=== PATIENT | male | born 1960 | race African-American/Black ===

== ENCOUNTER → 2020-02-16 | Outpatient (CLI) | payer OTHER ==
[~2020-02-16] MED LIST: ASPI-630 PO; IOHEXOL 180 MG/ML 10 ML VIAL. ONE; LIPITOR80 MG PO; METO100T5 PO; TAMS0.4C97 PO; TELM1TAB26 PO; methylPREDNISolone ACETATE 40 MG/ML VIAL. ONE; methylPREDNISolone ACETATE 80 MG/ML VIAL. ONE
--- NOTE | 2020-02-16 09:49 | PDOC1 ---
INITIAL PAIN CONSULT DATE OF SERVICE: DOS: DATE: 02/16/20 TIME: 09:43 CHIEF COMPLAINT: Chief Complaint: Low back and left lower extremity pain Neck and left upper extremity pain HISTORY OF PRESENT ILLNESS: 59-year-old male presents with history of pain low back bilateral lower extr emities left greater than right also neck and left upper extremity pain for many years patient reports [employer] duty [employer] as well as sports related injuries over the many years and [employer] active duty with many years of pain worse over the past 6 months to year wart is beginning to get much worse especially in the low back and left leg when he standing patient reports with walking it decreases slightly but is still present standing still is the worst. Patient ports better with sitting or laying down but does awaken her from sleep about twice a night patient reports is not effective bowel bladder control does not affect his abil ity to ambulate significantly less he goes more than about 15 to 20 minutes he does have a cane which he carries with him occasionally but does not have that with him today. Patient reports the pain is constant throbbing shooting in the low back rating to left lower extremity posterior gluteus lateral thigh anterior thigh medial thigh also some on the right with some tingling in the right lateral and anterior thigh patient ports his numbness radiating is also aching cramping pain in the back as well as in the neck patient describes his disability rating is from 0-10 10 being the worst is a 9 with family home responsibilities 6 with social activity recreation and occupational activities 8 with sexual behavior for self-care and/support activities. Patient have MRI scan lumbar spine showing some degenerative changes at the L4-5 and L5-S1 levels. Patient ports no loss of motor function but significant fatigability of the lower extremities specially on the left side with walking and especially with standing. PAST MEDICAL HISTORY: PMH: Hypertension, arthritis, migraine headaches, sleep apnea PREVIOUS SURGERIES: Past Surgical Hx: Right shoulder bone spur 1998, left shoulder bone spur 2014, right knee meniscus repair 2005, bilateral knee tendon repair 2007 CURRENT MEDICATIONS: Current Meds: See patients chart ALLERGIES; Allergies: Coded Allergies: No Known Drug Allergies (Unverified , 02/16/20) FAMILY HISTORY: Family Hx: Heart disease and hypertension SOCIAL HISTORY: Social Hx: She drinks alcohol about 2 drinks daily does not smoke not use any illegal illicit recreational drugs is lives with his spouse with 2 children live at home lives locally in [facility] REVIEW OF SYSTEMS: ROS: Positive for those items mentioned in history of present illness, all systems are reviewed, otherwise negative, and is complete and full and well-documented on patient's chart PHYSICAL EXAM: VS: Blood pressure is 133/78 pulse 77 respirations 18 temperature 90.2 F height is 6 foot 5 inches weight is 340 pounds PE: PHYSICAL EXAMINATION: GENERAL: The patient is awake, alert, oriented, appropriate, very pleasant demeanor HEENT: Shows normocephalic, atraumatic. Extraocular movements are intact and symmetrical. Oral cavity: Mucous membranes moist and pink. Dentition is intact. NECK: Shows anterior throat supple without palpable lymphadenopathy noted. Swallow reflex symmetrical. CHEST: Shows normal on inspection. Breath sounds are clear bilaterally, no rales rhonchi wheezes auscultated. HEART: Shows S1, S2 clear. No murmurs auscultated. ABDOMEN: Soft, nontender, nondistended, obese. No palpable organomegaly is noted. No rebound or guarding demonstrated. BACK: Shows spine grossly in the midline. Normal-appearing cervical lordotic curvature. Cervical spine shows good rotation motion both laterally as well as extension flexion with some minor pain in the left shoulder with left lateral rotation past 45 degrees. There is slightly increased thoracic kyphosis, some minor flattening of the lumbar lordotic curvature. Lumbar paraspinous muscles show symmetrical on inspection, on palpation shows some moderate tenderness diffusely throughout the upper, middle and lower distribution of the paraspinous muscles, but without specific trigger points, without radiation of pain. The patient has good rotational motion of the lumbar spine, both laterally as well as extension and flexion without significant difficulty. No tenderness over the spinous processes, sacrum or sacroiliac regions. EXTREMITIES: Lower extremities show deep tendon reflexes 2+ in the patellar and tendo calcaneus tendons. Motor exam is 5 on a scale of 5 with right dorsiflexion, extension, quadriceps and hamstring flexion and 5/5 on the left. Peripheral pulses are 1+ posterior tibial. No peripheral edema is noted bilaterally. Lower extremities are warm and dry to touch, equal in color and appearance. Straight leg raise noted to be negative bilaterally. Gaenslen's and Serjio's maneuvers are negative bilaterally as well. Upper extremities show deep tendon reflexes 2+ in the bicep and tricep tendons, motor exam is strong with 5 out of 5 labor/excavator strength biceps and triceps flexion and extension shoulder shrug strong and intact without loss of strength on resistance bilaterally. The patient is able to stand, stand on his toes out significant difficulty or loss of balance walks with a normal-appearing gait for short distance in the office today not use any assistive devices currently. SKIN: Shows warm and dry, good turgor. No edema. No sores, rashes or bruising throughout. IMPRESSION: Impression: 59-year-old male with long history low back bilateral lower extremity pain left greater than right in a radicular fashion MRI scan is noted Hypertension Arthritis Plan: Options were discussed with the patient including conservative medical management physical therapies interventional techniques and he like to pursue interventional techniques. We discussed a lumbar epidural steroid injection using descriptions as well as anatomical models to describe the procedure. Risks were discussed including but not limited to: Bleeding, infection, possibility of epidural hematoma and subsequent neurological compromise, dural puncture, headaches, spinal cord and/or nerve damage, side effects of steroid medication, and poor results regarding pain control. Patient understands wished to proceed. Patient will return to the clinic in approximate 2 weeks for follow-up was counseled as to return appointment activity level and side effects to be aware of Procedure is lumbar epidural steroid injection under local anesthetic using sterile prep and drape at the L4-5 level using C-arm fluoroscopic guidance in both AP and lateral views medications injected is 120 mg Depo-Medrol + 10 mL preservative-free normal saline and 2 mL contrast- condition at discharge is stable patient tolerated procedure well had no complications. RAQUEL MARSHALL MD Feb 16, 2020 09:49
== END | disposition home or self-care (01) ==
LOC: PNCL 08:11
PROVIDERS: ATTEND Anesthesiology
DX: M54.5 Low back pain (principal); M79.605 Pain in left leg; M79.602 Pain in left arm; I10 Essential (primary) hypertension; M19.90 Unspecified osteoarthritis, unspecified site; G43.909 Migraine, unspecified, not intractable, without status migrainosus; G47.30 Sleep apnea, unspecified; Z79.82 Long term (current) use of aspirin; Z79.899 Other long term (current) drug therapy; Z98.890 Other specified postprocedural states
CPT/HCPCS: 62323; J1030; J1040; Q9965

== ENCOUNTER → 2020-03-01 | Outpatient (CLI) | payer OTHER ==
--- NOTE | 2020-03-01 08:42 | PDOC ---
Progress Note - Pain Clinic Date of Service: DOS: DATE: 03/01/20 TIME: 08:39 Diagnosis: Dx: Lumbar radiculopathy with lumbar degenerative disc disease Cervical radiculopathy with cervical degenerative disc disease History or Present Illness: HPI: 59-year-old male returns follow-up status post lumbar epidural steroid injection x1. Patient reports about 50% improvement initially now about 10% overall with pain returning in the low back bilaterally and also into the bilateral lower extremity slightly more on the left than the right but present bilaterally to the posterior gluteus posterior lateral thigh anterior thighs medial thighs patient reports is worse with walking standing changing positions better with sitting or laying down but is been waking from sleep here over the last week or so about every 5 hours. Patient reports his pain is a 9 on scale of 10 over the past week 5 on average to its least is a 5 today. Patient reports no new motor or sensory deficits no new bowel or bladder incontinence or complaints patient scribes pain is aching tight shooting also tingling in the low back and tingling and shooting in the legs again slightly more on the left and present bilaterally. Physical Exam: VS: Blood pressure is 122/72 pulse 83 respirations 20 temperature 90.2 F height is 6 foot 5 inches weight is 339 pounds PE: PHYSICAL EXAMINATION: GENERAL: The patient is awake, alert, oriented, appropriate, very pleasant demeanor HEENT: Shows normocephalic, atraumatic. Extraocular movements are intact and symmetrical. Oral cavity: Mucous membranes moist and pink. NECK: Shows anterior throat supple without palpable lymphadenopathy noted. Swallow reflex symmetrical. CHEST: Shows normal on inspection. Breath sounds are clear bilaterally. HEART: Shows S1, S2 clear. No murmurs auscultated. ABDOMEN: Soft, nontender, nondistended, obese. No palpable organomegaly is noted. No rebound or guarding demonstrated. BACK: Shows spine grossly in the midline. Normal-appearing cervical lordotic curvature. There is slightly increased thoracic kyphosis, some minor flattening of the lumbar lordotic curvature. Lumbar paraspinous muscles show symmetrical on inspection, on palpation shows some moderate tenderness diffusely throughout the upper, middle and lower distribution of the paraspinous muscles, but without specific trigger points, without radiation of pain. The patient has good rotational motion of the lumbar spine, both laterally as well as extension and flexion without significant difficulty. No tenderness over the spinous processes, sacrum or sacroiliac regions. EXTREMITIES: Lower extremities show deep tendon reflexes 2+ in the patellar and tendo calcaneus tendons. Motor exam is 5 on a scale of 5 with right dorsiflexion, extension, quadriceps and hamstring flexion and 5/5 on the left. Peripheral pulses are 1+ posterior tibial. No peripheral edema is noted bilaterally. Lower extremities are warm and dry to touch, equal in color and appearance. SKIN: Shows warm and dry, good turgor. No edema. No sores, rashes or bruising throughout. Procedure: Procedure: Options were discussed with the patient. Patient's old chart was reviewed his current medication regimen updated current review of systems updated today as well. We will proceed with a second in a series lumbar epidural steroid injection today with fluoroscopic guidance. Risks were discussed including but not limited to: Bleeding, infection, possibility of epidural hematoma and subsequent neurological compromise, dural puncture, headaches, spinal cord and/or nerve damage, side effects of steroid medication, and poor results regarding pain control. Patient understands wished to proceed. Patient will return to the clinic in approximate 2 weeks for follow-up was counseled as to return appointment activity level and side effects to be aware of. Medication Injected: Med Injected: Procedure is lumbar epidural steroid injection under local anesthetic using sterile prep and drape at the L4-5 level using C-arm fluoroscopic guidance in both AP and lateral views medications injected is 120 mg Depo-Medrol + 10 mL preservative-free normal saline and 2 mL contrast- condition at discharge is stable patient tolerated procedure well had no complications. Condition at Discharge: Condition at Discharge: Condition at discharge is stable, patient tolerated procedure well and had no complications. RAQUEL MARSHALL MD Mar 01, 2020 08:42
== END | disposition home or self-care (01) ==
LOC: PNCL 08:09
PROVIDERS: ATTEND Anesthesiology
DX: M51.16 Intervertebral disc disorders with radiculopathy, lumbar region (principal); M50.10 Cervical disc disorder with radiculopathy, unspecified cervical region; Z79.82 Long term (current) use of aspirin; Z79.899 Other long term (current) drug therapy
CPT/HCPCS: 62323; J1030; J1040; Q9965

== ENCOUNTER → 2020-03-15 | Outpatient (CLI) | payer OTHER ==
--- NOTE | 2020-03-15 08:32 | PDOC ---
Progress Note - Pain Clinic Date of Service: DOS: DATE: 03/15/20 TIME: 08:29 Diagnosis: Dx: Lumbar radiculopathy with lumbar degenerative disc disease Cervical radiculopathy with cervical degenerative disc disease History or Present Illness: HPI: 60-year-old male returns follow-up status post lumbar epidural to injection x2. Patient reports only about 20% improvement overall in the low back bilateral lower extremities patient chuy still some pain low back bilateral posterior gluteus lateral thighs anterior thighs medial thighs worse with walking standing changing positions. Patient chuy has been relocating to a new home has been moving a lot of objects around the house without extra activity and bending and moving and standing etc. which she feels has exacerbated the pain to some extent since his last visit. Patient reports pain now is a 9 on scale 10 is worse over the past week 7 on average for its least and is a 7 today patient reports is aching and tingling sometimes unbearable constant in the low back and the legs. Patient reports no new motor or sensory deficits reports does awaken him from sleep about once every 5 hours but usually repositioning get back to sleep. Patient reports no bowel or bladder incontinence or other complaints. Physical Exam: VS: Blood pressure is 138/78 pulse 81 respirations 18 temperature is 6 feet 5 inches weight is 337 pounds PE: PHYSICAL EXAMINATION: GENERAL: The patient is awake, alert, oriented, appropriate, very pleasant demeanor HEENT: Shows normocephalic, atraumatic. Extraocular movements are intact and symmetrical. NECK: Shows anterior throat supple without palpable lymphadenopathy noted. Swallow reflex symmetrical. CHEST: Shows normal on inspection. Breath sounds are clear bilaterally, no rales or rhonchi. HEART: Shows S1, S2 clear. ABDOMEN: Soft, nontender, nondistended, obese. No palpable organomegaly is noted. No rebound or guarding demonstrated. BACK: Shows spine grossly in the midline. Normal-appearing cervical lordotic curvature. There is slightly increased thoracic kyphosis, some flattening of the lumbar lordotic curvature. Lumbar paraspinous muscles show symmetrical on inspection, on palpation shows some moderate tenderness diffusely throughout the middle and lower distribution of the paraspinous muscles without specific trigger points, without radiation of pain. The patient has good rotational motion of the lumbar spine, both laterally as well as extension and flexion without significant difficulty. No tenderness over the spinous processes, sacrum or sacroiliac regions. EXTREMITIES: Lower extremities show deep tendon reflexes 2 in the patellar and tendo calcaneus tendons. Motor exam is 5 on a scale of 5 with right dorsiflexion, extension, quadriceps and hamstring flexion and 5/5 on the left. Peripheral pulses are 1 posterior tibial. No peripheral edema is noted bilaterally. Lower extremities are warm and dry to touch, equal in color and appearance. SKIN: Shows warm and dry, good turgor. No edema. No sores, rashes or bruising throughout. Procedure: Procedure: Options were discussed with the patient. Patient chart was reviewed his his current medication regimen updated current review of systems updated today as well. We will proceed with a third in the series lumbar epidural steroid injection today with fluoroscopic guidance. Risks were discussed including but not limited to: Bleeding, infection, possibility of epidural hematoma and subsequent neurological compromise, dural puncture, headaches, spinal cord and/or nerve damage, side effects of steroid medication, and poor results regarding pain control. Patient understands wished to proceed. Patient will return to the clinic in approximate 2 weeks for follow-up was counseled as to return appointment activity level and side effects to be aware of. Medication Injected: Med Injected: Procedure is lumbar epidural steroid injection under local anesthetic using sterile prep and drape at the L4-5 level using C-arm fluoroscopic guidance in both AP and lateral views medications injected is 120 mg Depo-Medrol + 10 mL preservative-free normal saline and 2 mL contrast- condition at discharge is stable patient tolerated procedure well had no complications. Condition at Discharge: Condition at Discharge: Condition at discharge stable, patient tolerated procedure well, and had no complications. RAQUEL MARSHALL MD Mar 15, 2020 08:32
== END | disposition home or self-care (01) ==
LOC: PNCL 08:16
PROVIDERS: ATTEND Anesthesiology
DX: M51.16 Intervertebral disc disorders with radiculopathy, lumbar region (principal); M50.10 Cervical disc disorder with radiculopathy, unspecified cervical region; Z79.82 Long term (current) use of aspirin; Z79.899 Other long term (current) drug therapy; Z98.890 Other specified postprocedural states
CPT/HCPCS: 62323; J1030; J1040; Q9965